=== PATIENT | male | born 1945 ===

== ENCOUNTER → 2016-09-13 | Outpatient (REF) | payer MEDICARE ==
[~2016-09-13] MED LIST: ASPI81TA83 PO; GLIP5TAB2 OR; LISI20TA5 PO; LOPRESSOR; MAG OXIDE; METF500T4 PO; MIRALAX; OMEP20TA7 PO; PRAV40TA PO
[2016-09-13 19:21] LABS: PERCENT SATURATION 42.6 % (19.7-37.4)
== END ==
LOC: M LAB REF 17:49
PROVIDERS: ATTEND Internal Medicine Nephrology
DX: D64.9 Anemia, unspecified (principal)

== ENCOUNTER → 2018-04-17 | Outpatient (REF) | payer MEDICARE ==
[2018-04-17 13:40] LABS: FERRITIN 80 NG/ML (26-388); IRON (FE) 78 UG/DL (65-175); PERCENT SATURATION 28.4 % (19.7-50.0); TOTAL IRON BINDING CAPACITY 275 UG/DL (250-450)
[2018-04-17 14:36] LABS: FOLATE 9.2 NG/ML; VITAMIN B12 LEVEL 349 PG/ML
[2018-04-20 11:39] LABS: Methylmalonic Acid 327 nmol/L (0-378)
== END ==
LOC: M LAB REF 12:57
DX: D64.9 Anemia, unspecified (principal)
CPT/HCPCS: 82746

== ENCOUNTER → 2020-09-23 | Outpatient (REF) | payer MEDICARE ==
[2020-09-24 13:23] LABS: FOLATE 9.1 NG/ML
== END ==
LOC: M LAB REF 17:20
PROVIDERS: ATTEND Nurse Practitioner Family
DX: D64.9 Anemia, unspecified (principal)